=== PATIENT | female | born 1945 | race Caucasian/White ===

== ENCOUNTER 2025-01-01 15:43 | Inpatient (IN) | payer MEDICARE ==
[~2025-01-01] VITALS: Ht 157.5 cm; Wt 68.0 kg
[2025-01-01] MEDS ORDERED: MELATONIN 3 MG TABLET PO PRN (16:15)
[2025-01-01] MEDS ORDERED: ACETAMINOPHEN 325 MG TABLET PO PRN (16:15)
[2025-01-01 18:12] VITALS: BP 126/71; PULSE 75; RESP 19; TEMP 98; O2SAT 98
[2025-01-01] MEDS ORDERED: TRAM100T56 PO (18:19)
[2025-01-01] MEDS ORDERED: CLOP75TA32 PO (18:19)
[2025-01-01] MEDS ORDERED: BUPR-49 PO (18:19)
[2025-01-01] MEDS ORDERED: ROSU40TA88 PO (18:19)
[2025-01-01] MEDS ORDERED: MELO-106 PO (18:19)
[2025-01-01] MEDS ORDERED: AMLO5TAB66 PO (18:19)
[2025-01-01] MEDS ORDERED: CYCL10TA16 PO (18:19)
[2025-01-01 20:00] VITALS: O2SAT 98
[2025-01-01 20:16] VITALS: BP 130/61; PULSE 78; RESP 20; TEMP 98.6; O2SAT 98
[2025-01-01] MEDS: POLYETHYLENE GLYCOL 3350 17 GM PACKET PO SCH (21:00)
[2025-01-01] MEDS: BUDESONIDE/FORMOTEROL FUMARATE 160-4.5 MCG/PUFF 10.2 GM INHALER IH SCH (21:45)
[2025-01-01] MEDS: GABAPENTIN 300 MG CAPSULE PO SCH (21:46)
[2025-01-01] MEDS: -LIDODERM PATCH NOTE- MISC SCH (21:46)
[2025-01-01 22:43] LABS: APPEARANCE,URINE TURBID (CLEAR); GLUCOSE, URINE (UA) NEGATIVE (NEGATIVE); LEUKOCYTE ESTERASE ,URINE LARGE (NEGATIVE); NITRATE,URINE NEGATIVE (NEGATIVE); OCCULT BLOOD,URINE LARGE (NEGATIVE); SPECIFIC GRAVITIY, URINE 1.014 (1.003-1.030)
[2025-01-01 23:08] LABS: SQUAMOUS EPITHELIAL CELL,UR Few /LPF (None Seen); SULFOSALICYLIC ACID,URINE 1+ (Negative)
[2025-01-02 07:48] LABS: PLATELET COUNT (AUTO) 581 K/uL (150-450); RED BLOOD CELL COUNT(AUTO) 4.33 MIL/uL (4.00-5.20); RED CELL DISTRIBUTION WIDTH 15.6 % (11.5-14.5); WHITE BLOOD COUNT (AUTO) 8.8 K/uL (4.5-11.0)
[2025-01-02 07:58] LABS: ASPARTATE AMINOTRANSFERASE 46 U/L (15-37); CALCIUM, TOTAL 8.9 mg/dL (8.8-10.5); CREATININE 0.79 mg/dL (0.60-1.30); GLOMERULAR FILTR. RATE CALC > 60 mL/min (>60); GLUCOSE,RANDOM 90 mg/dL (70-110); SODIUM SERUM 139 mmol/L (136-145); TOTAL PROTEIN, SERUM 7.1 g/dL (6.4-8.2); UREA NITROGEN, BLOOD 19 mg/dL (7-18)
[2025-01-02 08:00] VITALS: BP 116/56; PULSE 65; RESP 16; TEMP 97.7; O2SAT 98
[2025-01-02] MEDS: CALCIUM CARBONATE 648 MG TABLET PO SCH (08:18)
[2025-01-02] MEDS: CYANOCOBALAMIN 500 MCG TABLET PO SCH (08:18)
[2025-01-02] MEDS: CHOLECALCIFEROL (VIT D3) 400 UNITS [10 MCG] TABLET PO SCH (08:18)
[2025-01-02] MEDS: MULTIVITAMINS WITH MINERALS, THERAPEUTIC TABLET PO SCH (08:19)
[2025-01-02] MEDS: BuPROPion HCL XL 150 MG ER TABLET PO SCH (08:19)
[2025-01-02] MEDS: LIDOCAINE 5% TRANSDERMAL PATCH TD SCH (08:19)
[2025-01-02] MEDS: ENOXAPARIN SODIUM 40 MG/0.4 ML PF SYRINGE SQ SCH (08:46)
[2025-01-02] MEDS: ASPIRIN 81 MG CHEWABLE TABLET PO SCH (08:46)
[2025-01-02] MEDS: CLOPIDOGREL BISULFATE 75 MG TABLET PO SCH (08:46)
[2025-01-02] MEDS ORDERED: GABAPENTIN 300 MG CAPSULE PO SCH (09:00)
[2025-01-02 20:02] VITALS: BP 137/62; PULSE 85; RESP 18; TEMP 98.1; O2SAT 96
[2025-01-02] MEDS: NYSTATIN 15 GM POWDER BOTTLE TP SCH (20:24)
[2025-01-03 00:08] VITALS: O2SAT 96
[2025-01-03 07:30] LABS: GLUCOMETER DEV NAME(LOC) 2WR.1D; GLUCOSE,POINT OF CARE 100 MG/DL (70-110)
[2025-01-03 08:00] VITALS: BP 124/79; PULSE 75; RESP 18; TEMP 98.1; O2SAT 95
[2025-01-03 09:00] VITALS: O2SAT 95
[2025-01-03] MEDS: ETHYL ALCOHOL 62% ANTISEPTIC NASAL SANITIZER 0.6 ML AMPUL NASAL SCH (09:17)
[2025-01-03 20:05] VITALS: BP 129/60; PULSE 86; RESP 18; TEMP 98.2; O2SAT 96
[2025-01-04 08:00] VITALS: BP 115/70; PULSE 78; RESP 19; TEMP 97.5; O2SAT 95
[2025-01-04 09:14] VITALS: O2SAT 96
[2025-01-04 10:02] VITALS: BP 122/68; PULSE 81; RESP 19; TEMP 97.5; O2SAT 95
[2025-01-04] MEDS: MELOXICAM 7.5 MG TABLET PO SCH (12:50)
[2025-01-04 20:02] VITALS: BP 120/57; PULSE 79; RESP 18; TEMP 98; O2SAT 95
[2025-01-04] MEDS: ALBUTEROL SULFATE HFA 90 MCG/PUFF 8 GM INHALER IH PRN (20:09)
[2025-01-04 21:20] VITALS: O2SAT 99
[2025-01-05 08:00] VITALS: BP 135/81; PULSE 78; RESP 18; TEMP 97.5; O2SAT 98
[2025-01-05] MEDS: TAMSULOSIN HCL 0.4 MG CAPSULE PO SCH (11:48)
[2025-01-05 20:05] VITALS: BP 127/58; PULSE 79; RESP 18; TEMP 97.5; O2SAT 97
[2025-01-05] MEDS: ATORVASTATIN CALCIUM 20 MG TABLET PO SCH (22:12)
[2025-01-06] MEDS ORDERED: ASPIRIN 81 MG CHEWABLE TABLET PO SCH (07:30)
[2025-01-06 08:00] VITALS: BP 110/53; PULSE 77; RESP 18; TEMP 98.2; O2SAT 96
[2025-01-06] MEDS: PANTOPRAZOLE SODIUM 40 MG DR TABLET PO SCH (08:19)
[2025-01-06] MEDS ORDERED: CLOPIDOGREL BISULFATE 75 MG TABLET PO SCH (09:30)
[2025-01-06] MEDS: CLOPIDOGREL BISULFATE 75 MG TABLET PO SCH (09:46)
[2025-01-06] MEDS: ASPIRIN 81 MG CHEWABLE TABLET PO SCH (09:46)
[2025-01-06 20:02] VITALS: BP 109/53; PULSE 71; RESP 18; TEMP 98.4; O2SAT 98
[2025-01-07 01:24] VITALS: O2SAT 98
[2025-01-07 08:00] VITALS: BP 119/63; PULSE 71; RESP 18; TEMP 97.3; O2SAT 97
[2025-01-07 20:00] VITALS: BP 123/51; PULSE 78; RESP 18; TEMP 98.1; O2SAT 95
[2025-01-08 07:30] LABS: CALCIUM, TOTAL 9.1 mg/dL (8.8-10.5); CREATININE 1.02 mg/dL (0.60-1.30); GLOMERULAR FILTR. RATE CALC 52.0 mL/min (>60); GLUCOSE,RANDOM 88.0 mg/dL (70-110); SODIUM SERUM 139.0 mmol/L (136-145); UREA NITROGEN, BLOOD 14.0 mg/dL (7-18)
[2025-01-08 08:00] VITALS: BP 152/57; PULSE 85; RESP 18; TEMP 97.6; O2SAT 97
[2025-01-08 09:25] VITALS: BP 125/55; PULSE 96; RESP 18
[2025-01-08 20:00] VITALS: BP 135/59; PULSE 72; RESP 19; TEMP 97.7; O2SAT 99
[2025-01-08] MEDS: TAMSULOSIN HCL 0.4 MG CAPSULE PO SCH (21:09)
[2025-01-09 08:00] VITALS: BP 106/68; PULSE 75; RESP 19; TEMP 97.6; O2SAT 97
[2025-01-09 20:00] VITALS: BP 140/61; PULSE 72; RESP 18; TEMP 97.3; O2SAT 96
[2025-01-10 08:30] VITALS: BP 118/58; PULSE 63; RESP 18; TEMP 97.3; O2SAT 97
[2025-01-10 16:59] VITALS: O2SAT 97
[2025-01-10 20:00] VITALS: BP 107/72; PULSE 81; RESP 18; TEMP 97.8; O2SAT 96
[2025-01-11] MEDS ORDERED: ATOR20TA PO (02:48)
[2025-01-11] MEDS ORDERED: CALC260T16 PO ×2 (02:48→11:02)
[2025-01-11] MEDS ORDERED: ASPI-1450 PO ×2 (02:48→11:02)
[2025-01-11] MEDS ORDERED: TAMS0.4C94 PO (02:48)
[2025-01-11 08:00] VITALS: BP 117/50; PULSE 71; RESP 18; TEMP 97.5; O2SAT 96
[2025-01-11 09:27] LABS: PLATELET COUNT (AUTO) 401 K/uL (150-450); RED BLOOD CELL COUNT(AUTO) 3.83 MIL/uL (4.00-5.20); RED CELL DISTRIBUTION WIDTH 15.9 % (11.5-14.5); WHITE BLOOD COUNT (AUTO) 6.0 K/uL (4.5-11.0)
[2025-01-11 09:36] LABS: CALCIUM, TOTAL 8.8 mg/dL (8.8-10.5); CREATININE 1.08 mg/dL (0.60-1.30); GLOMERULAR FILTR. RATE CALC 49.0 mL/min (>60); GLUCOSE,RANDOM 122.0 mg/dL (70-110); SODIUM SERUM 141.0 mmol/L (136-145); UREA NITROGEN, BLOOD 20.0 mg/dL (7-18)
[2025-01-11] MEDS ORDERED: POLY17PO62 PO (11:02)
[2025-01-11] MEDS ORDERED: CHOL400T56 PO (11:02)
[2025-01-11] MEDS ORDERED: PANT-31 PO (11:02)
[2025-01-11] MEDS ORDERED: CYAN500T56 PO (11:02)
[2025-01-11] MEDS ORDERED: CLOP75TA83 PO (11:02)
[2025-01-11] MEDS ORDERED: GABA-1181 PO (11:02)
[2025-01-11] MEDS ORDERED: MULT-1303 PO (11:02)
[2025-01-11] MEDS ORDERED: BUDE10.26 IH (11:02)
[2025-01-11] MEDS ORDERED: MELO-106 PO (11:02)
[2025-01-11] MEDS ORDERED: ROSU20TA98 PO (11:02)
[2025-01-11] MEDS ORDERED: BUPR-49 PO (11:02)
[2025-01-11 20:00] VITALS: BP 130/68; PULSE 62; RESP 18; TEMP 97.7; O2SAT 98
[2025-01-11 21:52] VITALS: O2SAT 98
[2025-01-12 07:18] LABS: PLATELET COUNT (AUTO) 358 K/uL (150-450); RED BLOOD CELL COUNT(AUTO) 3.68 MIL/uL (4.00-5.20); RED CELL DISTRIBUTION WIDTH 16.7 % (11.5-14.5); WHITE BLOOD COUNT (AUTO) 4.4 K/uL (4.5-11.0)
[2025-01-12 08:05] VITALS: BP 129/70; PULSE 70; RESP 18; TEMP 98.1; O2SAT 99
[2025-01-12 20:00] VITALS: BP 132/69; PULSE 68; RESP 18; TEMP 97.8; O2SAT 97
[2025-01-12] MEDS ORDERED: DEXTROSE 5%-0.45% SODIUM CHL 1,000 ML IV PRN (23:55)
[2025-01-13] MEDS ORDERED: SODIUM CHLORIDE 0.9% 1,000 ML ONE (06:07)
[2025-01-13 06:38] LABS: PLATELET COUNT (AUTO) 363 K/uL (150-450); RED BLOOD CELL COUNT(AUTO) 3.92 MIL/uL (4.00-5.20); RED CELL DISTRIBUTION WIDTH 16.4 % (11.5-14.5); WHITE BLOOD COUNT (AUTO) 5.2 K/uL (4.5-11.0)
[2025-01-13 08:00] VITALS: BP 147/71; PULSE 75; RESP 18; TEMP 97.9; O2SAT 98
[2025-01-13] MEDS: SODIUM CHLORIDE 0.9% 1,000 ML IV ONE (08:55)
[2025-01-13 10:48] VITALS: BP 136/67; PULSE 70; RESP 18; TEMP 98; O2SAT 99
[2025-01-13] MEDS ORDERED: PROPOFOL 1% 20 ML VIAL IVP ONE (12:00)
[2025-01-13 20:09] VITALS: BP 116/80; PULSE 78; RESP 19; TEMP 97.2; O2SAT 97
[2025-01-14 00:09] VITALS: O2SAT 97
[2025-01-14 06:48] LABS: PLATELET COUNT (AUTO) 304 K/uL (150-450); RED BLOOD CELL COUNT(AUTO) 3.70 MIL/uL (4.00-5.20); RED CELL DISTRIBUTION WIDTH 17.2 % (11.5-14.5); WHITE BLOOD COUNT (AUTO) 4.5 K/uL (4.5-11.0)
[2025-01-14 08:00] VITALS: BP 131/70; PULSE 70; RESP 18; TEMP 97.7; O2SAT 97
== END 2025-01-14 12:55 | disposition home health service (06) | DRG 71 ==
LOC: 2WR 18:04
PROVIDERS: ADMIT Physical Medicine & Rehabilitation; ATTEND Physical Medicine & Rehabilitation
PROC: 0DJ08ZZ Inspection of Upper Intestinal Tract, Via Natural or Artificial Opening Endoscopic (ICD-10-PCS; principal; 2025-01-13 09:45)
DX: G93.41 Metabolic encephalopathy (principal); E46 Unspecified protein-calorie malnutrition; K57.32 Diverticulitis of large intestine without perforation or abscess without bleeding; N39.0 Urinary tract infection, site not specified; Z16.12 Extended spectrum beta lactamase (ESBL) resistance; Z16.24 Resistance to multiple antibiotics; K22.10 Ulcer of esophagus without bleeding; R53.81 Other malaise; G99.2 Myelopathy in diseases classified elsewhere; Z74.09 Other reduced mobility; R26.9 Unspecified abnormalities of gait and mobility; N18.30 Chronic kidney disease, stage 3 unspecified; I12.9 Hypertensive chronic kidney disease with stage 1 through stage 4 chronic kidney disease, or unspecified chronic kidney disease; F32.A Depression, unspecified; M48.061 Spinal stenosis, lumbar region without neurogenic claudication; M48.02 Spinal stenosis, cervical region; E78.5 Hyperlipidemia, unspecified; R74.01 Elevation of levels of liver transaminase levels; E86.0 Dehydration; I65.22 Occlusion and stenosis of left carotid artery; B96.20 Unspecified Escherichia coli [E. coli] as the cause of diseases classified elsewhere; D64.9 Anemia, unspecified; E11.51 Type 2 diabetes mellitus with diabetic peripheral angiopathy without gangrene; I25.10 Atherosclerotic heart disease of native coronary artery without angina pectoris; J44.9 Chronic obstructive pulmonary disease, unspecified; M43.17 Spondylolisthesis, lumbosacral region; M54.31 Sciatica, right side; R31.9 Hematuria, unspecified; R41.89 Other symptoms and signs involving cognitive functions and awareness; G89.29 Other chronic pain; M54.50 Low back pain, unspecified; M54.32 Sciatica, left side; Z80.3 Family history of malignant neoplasm of breast; Z85.3 Personal history of malignant neoplasm of breast; Z86.000 Personal history of in-situ neoplasm of breast; Z87.891 Personal history of nicotine dependence; Z91.81 History of falling; Z68.27 Body mass index [BMI] 27.0-27.9, adult; Z79.899 Other long term (current) drug therapy; Z79.82 Long term (current) use of aspirin; Z91.041 Radiographic dye allergy status; Z91.013 Allergy to seafood
CPT/HCPCS: 80048; 80053; 81001; 81002; 82271; 82962; 85025; 87077; 87081; 87086; 87186; 92507; 92523; 97110; 97116; 97150; 97163; 97167; 97530; 97535; 99366; J1650; J2704; J3535; J7030